=== PATIENT | female | born 1995 | race African-American/Black ===

== ENCOUNTER 2021-05-06 16:52 | Emergency (ER) | payer OTHER ==
[2021-05-06 20:22] LABS: HEMOGLOBIN 12.2 gm/dl (12.3-15.3); RED BLOOD COUNT 3.78 M/UL (4.00-5.10); WHITE BLOOD COUNT 7.4 K/UL (4.5-11.0)
[2021-05-06 20:41] LABS: BUN/CREATININE RATIO 10 (0-10)
== END 2021-05-06 21:25 | disposition home or self-care (01) ==
LOC: ER1 16:52
PROVIDERS: Emergency Medicine
DX: O24.913 Unspecified diabetes mellitus in pregnancy, third trimester (principal); E11.649 Type 2 diabetes mellitus with hypoglycemia without coma; O99.891 Other specified diseases and conditions complicating pregnancy; M54.5 Low back pain; Z88.0 Allergy status to penicillin
CPT/HCPCS: 80053; 81001; 85025; 99284

== ENCOUNTER 2021-05-06 21:35 | Outpatient (CLI) | payer OTHER | END 2021-05-06 23:41 | disposition home or self-care (01) | LOC: GENOP 21:35 | DX: O99.891 Other specified diseases and conditions complicating pregnancy (principal); R10.30 Lower abdominal pain, unspecified; M54.9 Dorsalgia, unspecified; R20.0 Anesthesia of skin; M06.9 Rheumatoid arthritis, unspecified; O99.013 Anemia complicating pregnancy, third trimester; D64.9 Anemia, unspecified; Z88.0 Allergy status to penicillin; Z3A.37 37 weeks gestation of pregnancy | CPT/HCPCS: G0463 ==

== ENCOUNTER 2021-05-19 15:49 | Inpatient (IN) | payer OTHER ==
[~2021-05-19] VITALS: Ht 165.1 cm; Wt 68.0 kg
[2021-05-19 16:57] LABS: HEMOGLOBIN 10.1 gm/dl (12.3-15.3); RED BLOOD COUNT 3.17 M/UL (4.00-5.10); WHITE BLOOD COUNT 5.4 K/UL (4.5-11.0)
[2021-05-20] MEDS ORDERED: FEROSUL325 MG PO (15:23)
[2021-05-20] MEDS ORDERED: IBUPROFEN600 MG PO (15:23)
[2021-05-20] MEDS ORDERED: DOCUSATE SODIU250 MG PO (15:23)
[2021-05-21 06:15] LABS: HEMOGLOBIN 12.4 gm/dl (12.3-15.3)
== END 2021-05-22 19:12 | disposition home or self-care (01) | DRG 807 ==
LOC: GENOP 15:49 → OB 16:17
PROVIDERS: Obstetrics & Gynecology; ADMIT Obstetrics & Gynecology
PROC: 10E0XZZ Delivery of Products of Conception, External Approach (ICD-10-PCS; principal; 2021-05-19)
PROC: 4A1HXCZ Monitoring of Products of Conception, Cardiac Rate, External Approach (ICD-10-PCS; 2021-05-19)
PROC: 3E0P7VZ Introduction of Hormone into Female Reproductive, Via Natural or Artificial Opening (ICD-10-PCS; 2021-05-19)
DX: O99.02 Anemia complicating childbirth (principal); Z37.0 Single live birth; D64.9 Anemia, unspecified; Z3A.38 38 weeks gestation of pregnancy; O99.824 Streptococcus B carrier state complicating childbirth; Z88.0 Allergy status to penicillin; Z20.822 Contact with and (suspected) exposure to COVID-19; O70.0 First degree perineal laceration during delivery
CPT/HCPCS: 36415; 51702; 80307; 81001; 82800; 85014; 85018; 85025; J2590; J2795; J3010; J3370; J7070; J7120; U0003

== ENCOUNTER 2021-07-07 09:17 | Emergency (ER) | payer OTHER ==
[~2021-07-07 09:17] MED LIST: DOCUSATE SODIU250 MG PO; FEROSUL325 MG PO; IBUPROFEN600 MG PO
[2021-07-07 11:07] LABS: BUN/CREATININE RATIO 11 (0-10)
[2021-07-07 11:12] LABS: HEMOGLOBIN 12.2 gm/dl (12.3-15.3); RED BLOOD COUNT 3.88 M/UL (4.00-5.10); WHITE BLOOD COUNT 4.2 K/UL (4.5-11.0)
== END 2021-07-07 13:00 | disposition home or self-care (01) ==
LOC: ER1 09:17
PROVIDERS: Physician Assistant
DX: R55 Syncope and collapse (principal); Z88.0 Allergy status to penicillin; M06.9 Rheumatoid arthritis, unspecified
CPT/HCPCS: 71045; 80053; 80307; 81001; 82550; 82553; 82962; 83874; 84484; 84703; 85025; 93005; 99284

== ENCOUNTER 2021-07-27 18:20 | Emergency (ER) | payer OTHER ==
[2021-07-27] MEDS ORDERED: LODINE CAP 300300 MG PO (18:47)
[2021-07-27] MEDS ORDERED: CLEOCIN HCL150 MG PO (18:47)
== END 2021-07-27 19:12 | disposition home or self-care (01) ==
LOC: ER1 18:20
DX: K08.89 Other specified disorders of teeth and supporting structures (principal); Z88.0 Allergy status to penicillin
CPT/HCPCS: 99283

== ENCOUNTER 2021-07-30 02:43 | Emergency (ER) | payer OTHER ==
[~2021-07-30 02:43] MED LIST changes: +CLEOCIN HCL150 MG PO; +LODINE CAP 300300 MG PO
[2021-07-30] MEDS ORDERED: LOTRIMIN CREAM45 GM TOP (03:08)
[2021-07-30] MEDS ORDERED: LOTRIMIN AF TP (03:08)
== END 2021-07-30 03:24 | disposition home or self-care (01) ==
LOC: ER1 02:43
DX: B35.3 Tinea pedis (principal)
CPT/HCPCS: 96372; 99282; J1100